=== PATIENT | female | born 1970 | race Caucasian/White ===

== ENCOUNTER 2019-01-16 18:46 | Emergency (ER) | payer SELFPAY ==
[~2019-01-16] VITALS: Ht 152.4 cm; Wt 2.0 kg
[2019-01-16 18:52] VITALS: Ht 152.4 cm; Wt 2.0 kg
[2019-01-16] MEDS ORDERED: IBUPROFEN 600 MG TAB PO ONE (20:30)
[2019-01-16] MEDS ORDERED: IBUP-1542 PO (21:38)
[2019-01-16 22:37] VITALS: BP 107/61; PULSE 60; RESP 18
--- NOTE | 2019-01-16 22:37 | ERD ---
ER Documentation Chief Complaint Chief Complaint S/P [facility] FALL, RIGHT ARM, LOW BACK, BUTTOCK PAIN; @0700 HPI This is an otherwise healthy 49-year old female with a history of low back pain presents to the ED status post mechanical trip and fall. Patient states she was shopping at her house at 7 AM this morning when she accidentally slipped on a puddle of water on the floor. Patient fell to her right side this is been having right shoulder, right hip and right lower back pain. Patient is able to remain ambulatory. There was no head injury or loss of consciousness. Patient is able to remain amatory. Patient states her low back and hip pain is worse when sitting or lying down. She not take any pain medications prior to coming here. No other complaints. ROS All systems reviewed and are negative except as per history of present illness. Medications Home Meds Active Scripts Ibuprofen* (Motrin*) 600 Mg Tab, 600 MG PO Q6H PRN for PAIN AND OR ELEVATED TEMP, #30 TAB Prov:ARIEL ZENG PA-C 01/16/19 Allergies Allergies: Coded Allergies: No Known Allergy (Unverified , 01/16/19) PMhx/Soc Medical and Surgical Hx: pt denies Medical Hx, pt denies Surgical Hx Hx Alcohol Use: No Hx Substance Use: No Hx Tobacco Use: No Smoking Status: Never smoker Physical Exam Vitals Vital Signs Date Temp Pulse Resp B/P (MAP) Pulse Ox O2 O2 Flow FiO2 Time Delivery Rate 01/16/19 98.2 60 18 107/61 100 Room Air 22:37 (76) 01/16/19 99.0 69 19 113/58 98 18:52 (76) Physical Exam Const: No acute distress Head: Atraumatic Eyes: Normal Conjunctiva ENT: Normal External Ears, Nose and Mouth. Neck: Full range of motion. No meningismus. Resp: Clear to auscultation bilaterally Chest: No clavicular tenderness on palpation. No skin tenting. No obvious deformity. Cardio: Regular rate and rhythm, no murmurs Abd: Soft, non tender, non distended. Normal bowel sounds Skin: No petechiae or rashes Back: No midline or flank tenderness. + Mild tenderness to palpation of the right lumbar paraspinal area. No step-offs. Upper Extremity -right Skin: No laceration, or evidence of external trauma Compartments: Soft Motor: + Limited range of motion of shoulder secondary to pain. Full active range of motion elbow/wrist Sensation: Intact shoulder/pinky/middle finger/thumb web space Bones: Nontender humerus/elbow/forearm/wrist/hand Snuffbox: Nontender Joints: No effusion Pulses/Perfusion: 2+ radial, Capillary refill < 2 seconds Lower Extremity -right Skin: No laceration Compartments: Soft Motor: Full active range of motion hip/knee Sensation: Intact to light touch FDWS/MF/LF/P surfaces. Bones: Nontender pelvis/knee Joints: No effusion or laxity Pulses/Perfusion: 2+ DP, Capillary refill < 2 seconds Neur: Awake and alert Psych: Normal Mood and Affect Results 24 hrs Current Medications Medications Dose Sig/[place] Start Time Status Last (Trade) Ordered Route PRN Stop Time Admin Dose Reason Admin Ibuprofen 600 mg ONCE ONCE 01/16/19 DC 01/16/19 (Motrin) PO 20:30 01/16/19 20:16 20:31 Procedures/MDM LABS & DIAGNOSTIC IMAGING: PROCEDURE: XR Hip. CLINICAL INDICATION: Fall, pain TECHNIQUE: AP and frog leg lateral views of the right hip were obtained. COMPARISON: None. FINDINGS: Osseous structures are intact. Joint space is maintained. No acute fracture or dislocation is identified. The soft tissues are unremarkable. IMPRESSION: 1. No acute osseous abnormality. PROCEDURE: XR Lumbar Spine. CLINICAL INDICATION: Fall, back pain TECHNIQUE: Three views of the lumbar spine were obtained. COMPARISON: None. FINDINGS: Alignment of the lumbar spine is normal. Vertebral body heights are maintained. Intervertebral disc spaces are preserved. No fracture or subluxation is identified. IMPRESSION: 1. Unremarkable lumbar spine radiographs. PROCEDURE: XR shoulder CLINICAL INDICATION: Fall, pain TECHNIQUE: Three views of the right shoulder were obtained. COMPARISON: None. FINDINGS: There is no acute fracture or dislocation. Osseous structures are intact. Alignment of the glenohumeral joint is normal. Distal right clavicle is mildly high-riding in relation with the acromion. There is no focal soft tissue abnormality. IMPRESSION: 1. Mildly high-riding distal clavicle, may represent acromioclavicular joint separation. 2. No acute fracture. ED COURSE: The patient was given ibuprofen The medication was well tolerated and the patient had market improvement in symptoms. The patient remained stable throughout ED course. MEDICAL DECISION MAKING: This is a 49-year-old female presents with multiple complaints status post trip and fall earlier today. She has no focal neurological deficits on physical exam. She mostly complained of right shoulder pain, right low back pain and right hip pain. X-rays as above are negative for any acute fracture dislocation. Clavicular x-ray with questionable AC joint dislocation. Patient is neurovascularly intact. She has no evidence of an open fracture, pneumothorax or pneumothorax. She does not need any emergent treatment for this. She was offered a sling for comfort however she deferred. Patient is ambulatory here in the ED. I have low suspicion for spinal cord injury or cauda equina. She will be discharged home with Rx ibuprofen. She was told to follow- up with her primary care provider in 2 days. Return here for any worsening symptoms. PRESCRIPTIONS: Ibuprofen SPECIALIST FOLLOW UP RECOMMENDED: None Patient has been advised to follow up with primary care in 1-2 days. Departure Diagnosis: Primary Impression: Fall with no significant injury Encounter type: initial encounter Qualified Codes: W19.XXXA - Unspecified fall, initial encounter Additional Impressions: Back pain Back pain location: low back pain Chronicity: acute Back pain laterality: right Sciatica presence: without sciatica Qualified Codes: M54.5 - Low back pain Right shoulder pain Chronicity: acute Qualified Codes: M25.511 - Pain in right shoulder Condition: Stable Patient Instructions: Fall Prevention Referrals: [facility] YOU HAVE RECEIVED A MEDICAL SCREENING EXAM AND THE RESULTS INDICATE THAT YOU DO NOT HAVE A CONDITION THAT REQUIRES URGENT TREATMENT IN THE EMERGENCY DEPARTMENT. FURTHER EVALUATION AND TREATMENT OF YOUR CONDITION CAN WAIT UNTIL YOU ARE SEEN IN YOUR DOCTORS OFFICE WITHIN THE NEXT 1-2 DAYS. IT IS YOUR RESPONSIBILITY TO MAKE AN APPOINTMENT FOR FOLOW-UP CARE. IF YOU HAVE A PRIMARY DOCTOR --you should call your primary doctor and schedule an appointment IF YOU DO NOT HAVE A PRIMARY DOCTOR YOU CAN CALL OUR PHYSICIAN REFERRAL HOTLINE AT IF YOU CAN NOT AFFORD TO SEE A PHYSICIAN YOU CAN CHOSE FROM THE FOLLOWING [facility] [address] [facility] [address] [facility]. [facility] [address] [facility] [address] [facility] [facility] [place] [address] [facility]. [facility] [address] [facility]. [facility] YOU HAVE RECEIVED A MEDICAL SCREENING EXAM AND THE RESULTS INDICATE THAT YOU DO NOT HAVE A CONDITION THAT REQUIRES URGENT TREATMENT IN THE EMERGENCY DEPARTMENT. FURTHER EVALUATION AND TREATMENT OF YOUR CONDITION CAN WAIT UNTIL YOU ARE SEEN IN YOUR DOCTORS OFFICE WITHIN THE NEXT 1-2 DAYS. IT IS YOUR RESPONSIBILITY TO MAKE AN APPOINTMENT FOR FOLOW-UP CARE. IF YOU HAVE A PRIMARY DOCTOR --you should call your primary doctor and schedule and appointment IF YOU DO NOT HAVE A PRIMARY DOCTOR YOU CAN CALL OUR PHYSICIAN REFERRAL HOTLINE AT . IF YOU CAN NOT AFFORD TO SEE A PHYSICIAN YOU CAN CHOSE FROM THE FOLLOWING [facility] INSTITUTIONS: [facility] [address] [place] [address] [facility] [address] [place], [place] [id number] [place] [address] [address] [place] [address] [facility] URGENT CARE/SPECIALTIES Additional Instructions: XR here are normal. You can take ibuprofen/tylenol for pain. Ambulate as tolerated. Follow up with your primary care doctor in 2 days, otherwise return here for any new or worsening symptoms. ARIEL ZENG PA-C Jan 16, 2019 22:37
== END 2019-01-16 22:38 | disposition home or self-care (01) ==
LOC: FTE 18:46
DX: M54.5 Low back pain (principal); M25.511 Pain in right shoulder
CPT/HCPCS: 72100; 73510